=== PATIENT | male | born 1945 | race Caucasian/White ===

== ENCOUNTER 2021-02-08 18:42 | Inpatient (IN) | payer OTHER ==
[~2021-02-08] VITALS: Ht 160 cm; Wt 76.7 kg
--- NOTE | 2021-02-08 19:15 | NUR ---
PATIENT C/O PRESSURE/PALPITATION, HEADACHE SINCE LAST NIGHT. PATIENT IS A/O X 4, RR EVEN AND UNLABORED, NO SIGNS OF SOB NOTED. PATIENT CONNECTED TO ADOPTION MANAGER AND POX.
[2021-02-08 19:25] LABS: BASOPHILS # (AUTO) 0.1 K/uL (0.0-0.2); EOSINOPHILS % (AUTO) 3.5 % (0.0-6.0); HEMATOCRIT 50 % (39-51); LYMPHOCYTES # (AUTO) 1.8 K/uL (0.8-4.8); LYMPHOCYTES % (AUTO) 26.1 % (20.0-44.0); MEAN CORPUSCULAR HGB CONC 34 g/dl (31.0-36.0); MEAN CORPUSCULAR VOLUME 93 fL (80-96); MONOCYTES # (AUTO) 0.6 K/uL (0.1-1.30); MONOCYTES % (AUTO) 9.1 % (2.0-12.0); NEUTROPHILS # (AUTO) 4.1 K/uL (1.8-8.9); NEUTROPHILS % (AUTO) 60.3 % (43.0-81.0); PLATELET COUNT (AUTO) 216 K/uL (150-450); RED BLOOD CELL COUNT(AUTO) 5.35 MIL/uL (4.5-6.0); WHITE BLOOD COUNT (AUTO) 6.8 K/uL (4.3-11.0)
[2021-02-08 19:38] LABS: ALBUMIN 3.9 g/dL (3.4-5.0); BILIRUBIN,DIRECT 0.2 mg/dL (0.0-0.2); BILIRUBIN,TOTAL 0.5 mg/dL (0.2-1.0); CALCIUM, SERUM 9.3 mg/dL (8.5-10.1); CREATININE 1.2 mg/dL (0.6-1.3); POTASSIUM 4.2 mmol/L (3.5-5.1); TOTAL PROTEIN, SERUM 7.7 g/dL (6.4-8.2)
[2021-02-08] MEDS ORDERED: IV NS 0.9% 250 ML IV ONE (20:08)
[2021-02-08] MEDS ORDERED: IOHEXOL-350 100 ML VIAL IV ONE (20:08)
--- NOTE | 2021-02-08 20:08 | NUR ---
MOVE SHEET SUBMITTED AND CALLED FOR TELE BED.
[2021-02-08] MEDS ORDERED: ASPIRIN 325 MG TABLET ONE (20:10)
[2021-02-08] MEDS ORDERED: ASPIRIN 81 MG TAB.CHEW PO ONE (20:30)
[2021-02-08] MEDS ORDERED: NITROGLYCERIN PACKET 1 GM PACKET TOP ONE (20:30)
[2021-02-08] MEDS ORDERED: ENOXAPARIN SODIUM 80 MG/0.8 ML DISP.SYRIN SQ ONE (20:30)
--- NOTE | 2021-02-08 20:30 | NUR ---
PATIENT RETURNED FROM CT
--- NOTE | 2021-02-08 20:52 | NUR ---
CLINICAL INFO AND REPORT GIVEN TO ENRIQUE SOUZA FROM [facility]
--- NOTE | 2021-02-08 21:25 | NUR ---
DR. WALLACE SPEAKING WITH DR. REIS.
--- NOTE | 2021-02-08 21:25 | NUR ---
DR REIS ON THE PHONE W/ DR WALLACE
[2021-02-08] MEDS ORDERED: INSULIN REGULAR, HUMAN 100 UNIT/ML 3 ML VIAL SQ PRN (21:30)
[2021-02-08] MEDS ORDERED: *INSULIN REGULAR(HUMULIN R)HUM 100 UNIT/ML VIAL SQ PRN (21:30)
[2021-02-08] MEDS ORDERED: DEXTROSE 50%-WATER 50 ML DISP.SYRIN IV PRN (21:30)
[2021-02-08] MEDS ORDERED: METOPROLOL TARTRATE 25 MG TABLET PO ONE (21:30)
--- NOTE | 2021-02-08 21:52 | NUR ---
GOT BED 310-2
[2021-02-08] MEDS ORDERED: ZOLPIDEM TARTRATE 5 MG TABLET PO PRN (22:00)
[2021-02-08] MEDS ORDERED: HYDROCODONE/APAP 5/325MG TABLET PO PRN (22:00)
[2021-02-08] MEDS: BLOOD SUGAR DIAGNOSTIC 1 EACH STRIP VI SCH (22:00)
[2021-02-08] MEDS ORDERED: ACETAMINOPHEN 325 MG TABLET PO PRN (22:00)
--- NOTE | 2021-02-08 22:20 | NUR ---
REPORT GIVEN TO CHARGE NURSE
--- NOTE | 2021-02-08 22:50 | NUR ---
PT TRANSFERED PER [employer]
[2021-02-08 22:58] VITALS: BP 145/73
[2021-02-08] MEDS: ATORVASTATIN 40 MG TABLET PO SCH (23:36)
--- NOTE | 2021-02-08 23:45 | NUR ---
REPORTS TAKEN BY RAMAN FROM JACQUELINE VASQUEZ FROM ER. PATIENT ARRIVED FROM ER AT 2258, AWAKE, A/O X4. NO S/S OF DISTRESS NOTED. CALL LIGHT INSTRUCTED AND WITHIN REACH. BED IN LOWEST AND LOCKED POSITION. PER TRANSLATOR UBALDO PATIENT WALKED FROM THE GURNEY TO THE BED, STEADY GAIT. PATIENT COMPLAINED OF HEADACHE, TYLENOL GIVEN. PATIENT IS NPO EXCEPT MEDS, TRANSLATOR AND PATIENT ARE AWARE. BLOOD SUGAR CHECKED, 153, NO INSULIN COVERAGE GIVEN.
[2021-02-09] VITALS (18 sets, daily range): BP systolic 113–146; BP diastolic 68–83
[2021-02-09] MEDS: BLOOD SUGAR DIAGNOSTIC 1 EACH STRIP VI SCH ×3 (06:35→17:30)
--- NOTE | 2021-02-09 06:36 | NUR ---
TRAIN RESERVATION CLERK CLOSING NOTES: PATIENT IN BED, AWAKE, A/O X4. NO S/S OF DISTRESS NOTED. CALL LIGHT WITHIN REACH. BED IN LOWEST AND LOCKED POSITION. NO COMPLAIN OF PAIN OR HEADACHE AT THIS TIME. STILL NPO. BLOOD SUGAR CHECKED, 115, NO INSULIN COVERAGE GIVEN. RESTED THROUGHOUT THE NIGHT. AMBULATORY.
[2021-02-09] MEDS ORDERED: ASPIRIN EC 81 MG TABLET.DR PO ONE (09:00)
[2021-02-09] MEDS ORDERED: IV NS 0.9% 1,000 ML ONE (09:24)
[2021-02-09] MEDS ORDERED: LIDOCAINE 2% 50 ML MDV IJ ONE (09:25)
[2021-02-09] MEDS ORDERED: IODIXANOL 0 ML IV ONE (09:25)
[2021-02-09] MEDS ORDERED: LIDOCAINE HCL/MPF 1% 30 ML VIAL IJ ONE (09:26)
[2021-02-09 09:59] LABS: CALCIUM, SERUM 8.8 mg/dL (8.5-10.1); CREATININE 1.1 mg/dL (0.6-1.3); POTASSIUM 4.6 mmol/L (3.5-5.1)
[2021-02-09] MEDS ORDERED: MIDAZOLAM HCL 2 MG/2ML VIAL ONE (10:34)
[2021-02-09] MEDS ORDERED: FENTANYL PF 100MCG/2ML AMPUL ONE (10:34)
[2021-02-09] MEDS ORDERED: NITROGLYCERIN IN 5 % DEXTROSE 250 ML IV ONE (11:11)
[2021-02-09] MEDS ORDERED: HEPARIN SODIUM, PORCINE 1,000 UNIT/ML VIAL ONE ×2 (11:22→11:41)
[2021-02-09] MEDS ORDERED: IODIXANOL 320MG/ML 50 ML IV ONE (11:41)
[2021-02-09] MEDS ORDERED: TICAGRELOR 90 MG TABLET PO ONE (11:47)
[2021-02-09] MEDS ORDERED: ASPIRIN 81 MG TAB.CHEW ONE (11:47)
[2021-02-09] MEDS ORDERED: IV NS 0.9% 1,000 ML IV SCH (13:00)
--- NOTE | 2021-02-09 13:20 | NUR ---
RN NOTE Received patient in bed resting. Tolerated room air. No c/o CP. With PIV intact, IVF NS 100 infusing. With Right TR band intact, no bleeding noted, With good capillary refill.
--- NOTE | 2021-02-09 15:15 | NUR ---
RN NOTE Able to remove right TR band, no bleeding noted. Patient has sensory on fingers. No bleeding, applied transparent dressing.
[2021-02-09] MEDS ORDERED: METF-440 PO (15:45)
[2021-02-09] MEDS ORDERED: CLOP75TA15 PO (15:45)
[2021-02-09] MEDS ORDERED: ASPI-1420 PO (15:45)
[2021-02-09] MEDS ORDERED: ATOR40TA PO (15:45)
--- NOTE | 2021-02-09 16:40 | NUR ---
RN NOTE Discussed with tasha Barroso on the phone re: the DC instructions and meds. Verbalized understanding.
--- NOTE | 2021-02-09 19:30 | NUR ---
REGIONAL SALES DIRECTOR: PT RECEIVED A/O X4, ON ROOM AIR WT NO ACUTE DISTRESS. SR ON TIMBER SKIDDER. AFEBRILE. S/P TR BAND REMOVAL ON RIGHT RADIAL WT NO ACTIVE BLEEDING, NO SWELLING OR HEMATOMA. HOB AT 35 DEGREES. BED IN LOWEST POSITION AND LOCKED, BED ALARM ON. SIDERAILS UP X2. CALL LIGHT KEPT WITHIN REACH. AWAITING FOR FAMILY TO PICK-UP FOR DISCHARGE.
[2021-02-09] MEDS ORDERED: CLOPIDOGREL BISULFATE 300 MG TABLET PO ONE ×2 (20:00→22:00)
[2021-02-09] MEDS: ATORVASTATIN 40 MG TABLET PO SCH (21:22)
--- NOTE | 2021-02-09 21:25 | NUR ---
COIL BINDER: PT DISCHARGED TO HOME PICKED UP BY FAMILY MEMBER. ALL DUE PO MEDS GIVEN, IV ACCESS DISCONTINUED. NO ACTIVE BLEEDING OR SWELLING ON RIGHT RADIAL SITE S/P TR BAND REMOVAL. DISCHARGE INSTRUCTIONS PROVIDED VIA [employer] JUNIOR QA ANALYST [employer] (SHALOM ID #[id number]) AND VERBALIZED UNDERSTANDING. CLARIFIED WT DR. WALLACE IF WANT PT TO TAKE ASPIRIN WITH PLAVIX AND MD SAID TO TAKE BOTH DAILY. ALL BELONGINGS SENT WITH PATIENT. ALL NEEDS MET.
[2021-02-09] MEDS ORDERED: TAMSULOSIN 0.4 MG CAP.SR.24H PO SCH (22:00)
[2021-02-10] MEDS ORDERED: ASPIRIN EC 81 MG TABLET.DR PO SCH (09:00)
[2021-02-10] MEDS ORDERED: CLOPIDOGREL BISULFATE 75 MG TABLET PO SCH (09:00)
== END 2021-02-09 21:25 | disposition home or self-care (01) | DRG 247 ==
LOC: ER 19:06 → TELE 22:02 → ICU 02-09 12:22
PROVIDERS: ADMIT Internal Medicine; ATTEND Internal Medicine
PROC: 027034Z Dilation of Coronary Artery, One Artery with Drug-eluting Intraluminal Device, Percutaneous Approach (ICD-10-PCS; principal; 2021-02-09)
PROC: 4A023N7 Measurement of Cardiac Sampling and Pressure, Left Heart, Percutaneous Approach (ICD-10-PCS; 2021-02-09)
PROC: B211YZZ Fluoroscopy of Multiple Coronary Arteries using Other Contrast (ICD-10-PCS; 2021-02-09)
DX: I21.4 Non-ST elevation (NSTEMI) myocardial infarction (principal); N40.0 Benign prostatic hyperplasia without lower urinary tract symptoms; E11.9 Type 2 diabetes mellitus without complications; E78.5 Hyperlipidemia, unspecified; Z20.822 Contact with and (suspected) exposure to COVID-19; Z79.84 Long term (current) use of oral hypoglycemic drugs; I25.10 Atherosclerotic heart disease of native coronary artery without angina pectoris
CPT/HCPCS: 36415; 71045-TC; 80048-TC; 80061-TC; 80076-TC; 82962-TC; 83690-TC; 84484-TC; 85025-TC; 85610-TC; 87081-TC; 92980; 93307-TC; C1725; C1769; C9803; G0378; G0500; J1644; J1650; J1815; J2250; J3010; J3490; J7030; J7050; Q9967

== ENCOUNTER 2024-02-21 22:44 | Emergency (ER) | payer MEDICARE, OTHER ==
[~2024-02-21] VITALS: Ht 160 cm; Wt 65.3 kg
[~2024-02-21 22:44] MED LIST: ASPI-1420 PO; ATOR40TA PO; CLOP75TA15 PO; METF-440 PO
[2024-02-21 23:33] LABS: BASOPHILS % (AUTO) 0.2 % (0.0-2.0); EOSINOPHILS % (AUTO) 5.9 % (0.0-6.0); HEMATOCRIT 27 % (39-51); HEMOGLOBIN 8.5 g/dL (13.5-17.5); LYMPHOCYTES # (AUTO) 0.5 K/uL (0.8-4.8); LYMPHOCYTES % (AUTO) 63.8 % (20.0-44.0); MEAN CORPUSCULAR HEMOGLOBIN 22 PG (26.0-33.0); MEAN CORPUSCULAR HGB CONC 31 g/dl (31.0-36.0); MEAN CORPUSCULAR VOLUME 70 fL (80-96); MONOCYTES # (AUTO) 0.2 K/uL (0.1-1.30); MONOCYTES % (AUTO) 21.7 % (2.0-12.0); NEUTROPHILS # (AUTO) 0.1 K/uL (1.8-8.9); NEUTROPHILS % (AUTO) 8.4 % (43.0-81.0); PLATELET COUNT (AUTO) 107 K/uL (150-450); RED CELL DISTRIBUTION WIDTH 22.1 % (11.5-15.0)
[2024-02-21 23:38] LABS: WHITE BLOOD COUNT (AUTO) 0.8 K/uL (4.3-11.0)
[2024-02-21 23:50] LABS: PARTIAL THROMBOPLASTIN TIME 23.5 SEC (24.3-34.3); PROTHROMBIN TIME 10.6 SECS (9.2-11.1)
[2024-02-21 23:56] LABS: APPEARANCE,URINE CLEAR (CLEAR); BILIRUBIN,URINE NEGATIVE (NEGATIVE); BLOOD, URINE NEGATIVE Ery/uL (NEGATIVE); COLOR,URINE YELLOW (YELLOW); KETONES,URINE NEGATIVE (NEGATIVE); LEUKOCYTE ESTERASE ,URINE NEGATIVE (NEGATIVE); NITRITE, URINE NEGATIVE (NEGATIVE); PROTEIN,URINE NEGATIVE (NEGATIVE); UGLUCOSE NEGATIVE (NEGATIVE); UROBILINOGEN,URINE 0.2 EU/dL (0.2)
[2024-02-22 00:11] LABS: ALANINE AMINOTRANSFERASE 29 U/L (12-78); ALBUMIN 3.1 g/dL (3.4-5.0); ALKALINE PHOSPHATASE 111 U/L (46-116); ASPARTATE AMINOTRANSFERASE 20 U/L (15-37); BILIRUBIN,DIRECT 0.1 mg/dL (0.0-0.2); BILIRUBIN,TOTAL 0.3 mg/dL (0.2-1.0); CALCIUM, SERUM 8.6 mg/dL (8.5-10.1); CARBON DIOXIDE 28 mmol/L (21-32); CHLORIDE 100 mmol/L (98-107); CREATININE 0.7 mg/dL (0.6-1.3); GLUCOSE 177 mg/dL (74-106); POTASSIUM 3.9 mmol/L (3.5-5.1); SODIUM SERUM 137 mmol/L (136-145); TOTAL PROTEIN, SERUM 6.7 g/dL (6.4-8.2); UREA NITROGEN, BLOOD 16 mg/dL (7-18)
[2024-02-22] MEDS ORDERED: CT SWABBABLE VALVE TRANS SET 1 EA INFUS.SET MC ONE (00:42)
[2024-02-22] MEDS ORDERED: IV NS 0.9% 250 ML IV ONE (00:42)
[2024-02-22] MEDS ORDERED: IOHEXOL-350 100 ML VIAL IV ONE (00:42)
[2024-02-22 01:54] LABS: ANISOCYTOSIS 1+; BASOPHILS % (MANUAL) 0 % (0.0-2.0); EOSINOPHILS % (MANUAL) 1 % (0-4); HYPOCHROMASIA 2+; LYMPHOCYTES % (MANUAL) 32 % (16-48); MONOCYTES % (MANUAL) 10 % (0-11.0); NEUTROPHILS % (MANUAL) 57 (42-76); OVALOCYTES 1+; PLATELET ESTIMATE DECREASED; STOMATOCYTES 1+
[2024-02-22 03:49] VITALS: BP 121/71; TEMP 98.1; O2SAT 96
== END 2024-02-22 03:49 | disposition home or self-care (01) ==
LOC: ER 22:53
DX: R53.1 Weakness (principal); R07.1 Chest pain on breathing; D61.818 Other pancytopenia; I10 Essential (primary) hypertension; E11.9 Type 2 diabetes mellitus without complications; R51.9 Headache, unspecified; E78.00 Pure hypercholesterolemia, unspecified; Z86.79 Personal history of other diseases of the circulatory system; Z85.89 Personal history of malignant neoplasm of other organs and systems
CPT/HCPCS: 99285; 70450; 71045; 93005; 71275; 85025; 80048; 80076; 81003; 36415 ×2; 84484 ×2; 85730; 82962; 85007; J7050; Q9967

== ENCOUNTER 2024-03-20 02:30 | Emergency (ER) | payer MEDICARE ==
[~2024-03-20] VITALS: Ht 160 cm; Wt 65.3 kg
[2024-03-20] MEDS ORDERED: MECLIZINE HCL 25 MG TABLET ONE (02:40)
[2024-03-20] MEDS: MECLIZINE HCL 25 MG TABLET PO ONE (02:40)
[2024-03-20] MEDS ORDERED: FAMOTIDINE/PF INJ 20 MG/2 ML VIAL IV ONE (03:04)
[2024-03-20] MEDS ORDERED: ONDANSETRON HCL/PF 4 MG/2 ML VIAL ONE (03:04)
[2024-03-20] MEDS: IV NS 0.9% 1,000 ML BAG IV ONE (03:05)
[2024-03-20] MEDS: ONDANSETRON HCL/PF 4 MG/2 ML VIAL IVP ONE (03:05)
[2024-03-20] MEDS: FAMOTIDINE/PF INJ 20 MG/2 ML VIAL IV ONE (03:05)
[2024-03-20 03:10] LABS: BASOPHILS % (AUTO) 1.2 % (0.0-2.0); EOSINOPHILS # (AUTO) 0.3 K/uL (0.0-0.7); EOSINOPHILS % (AUTO) 7.8 % (0.0-6.0); HEMATOCRIT 31 % (39-51); HEMOGLOBIN 9.5 g/dL (13.5-17.5); LYMPHOCYTES # (AUTO) 1.4 K/uL (0.8-4.8); LYMPHOCYTES % (AUTO) 34.9 % (20.0-44.0); MEAN CORPUSCULAR HEMOGLOBIN 24 PG (26.0-33.0); MEAN CORPUSCULAR HGB CONC 30 g/dl (31.0-36.0); MEAN CORPUSCULAR VOLUME 78 fL (80-96); MONOCYTES # (AUTO) 0.9 K/uL (0.1-1.30); MONOCYTES % (AUTO) 22.5 % (2.0-12.0); NEUTROPHILS # (AUTO) 1.4 K/uL (1.8-8.9); NEUTROPHILS % (AUTO) 33.6 % (43.0-81.0); PLATELET COUNT (AUTO) 210 K/uL (150-450); RED BLOOD CELL COUNT(AUTO) 4.04 MIL/uL (4.5-6.0); RED CELL DISTRIBUTION WIDTH 26.8 % (11.5-15.0); WHITE BLOOD COUNT (AUTO) 4.1 K/uL (4.3-11.0)
[2024-03-20 03:23] LABS: CALCIUM, SERUM 8.9 mg/dL (8.5-10.1); CARBON DIOXIDE 25 mmol/L (21-32); CHLORIDE 103 mmol/L (98-107); GLUCOSE 213 mg/dL (74-106); POTASSIUM 3.4 mmol/L (3.5-5.1); SODIUM SERUM 140 mmol/L (136-145); UREA NITROGEN, BLOOD 14 mg/dL (7-18)
[2024-03-20 03:37] LABS: ALANINE AMINOTRANSFERASE 13 U/L (12-78); ALBUMIN 3.1 g/dL (3.4-5.0); ALKALINE PHOSPHATASE 116 U/L (46-116); ASPARTATE AMINOTRANSFERASE 11 U/L (15-37); BILIRUBIN,DIRECT 0.1 mg/dL (0.0-0.2); BILIRUBIN,TOTAL 0.3 mg/dL (0.2-1.0); NT-PRO BNP 381 pg/mL (0-125); TOTAL PROTEIN, SERUM 6.5 g/dL (6.4-8.2)
[2024-03-20 03:51] LABS: BAND % (MANUAL) 2 % (0.0-5.0); LYMPHOCYTES % (MANUAL) 42 % (16-48); MONOCYTES % (MANUAL) 18 % (0-11.0); NEUTROPHILS % (MANUAL) 35 (42-76)
[2024-03-20 03:52] LABS: BASOPHILS % (MANUAL) 0 % (0.0-2.0); EOSINOPHILS % (MANUAL) 3 % (0-4)
[2024-03-20] MEDS ORDERED: MECL-159 PO ×2 (05:26→06:18)
[2024-03-20 06:26] VITALS: BP 144/82; TEMP 98; O2SAT 100
== END 2024-03-20 06:26 | disposition home or self-care (01) ==
LOC: ER 02:45
DX: R42 Dizziness and giddiness (principal); I10 Essential (primary) hypertension; E11.9 Type 2 diabetes mellitus without complications; I25.2 Old myocardial infarction; E78.00 Pure hypercholesterolemia, unspecified; Z85.00 Personal history of malignant neoplasm of unspecified digestive organ
CPT/HCPCS: 99285; 96374; 96361; 96375; 93005; 71045; 70450; 85025; 80048; 83690; 80076; 85007; 36415; 84484; 83880; 80320; J8597; J3490; J2405; J7030; G0480